=== PATIENT | male | born 1960 | race American Indian/Alaskan Native ===

== ENCOUNTER 2016-05-22 18:59 | Emergency (ER) | payer SELFPAY ==
[2016-05-22] MEDS ORDERED: NACL 0.9% 1000 ML 1,000 ML ONE (19:05)
[2016-05-22] MEDS ORDERED: ADRENALIN ONE (19:25)
[2016-05-22] MEDS ORDERED: SODIUM BICARBONATE IV ONE (19:25)
--- NOTE | 2016-05-22 19:43 | Emergency Department Report ---
HPI - General Time Seen by Provider: 05/22/16 19:42 - HPI HPI: This is a 56-year-old -[place] male presents to the emergency department by EMS from home in cardiac arrest. Allegedly the patient was seen going down, unresponsive and pulseless by his son about 6:20 PM. EMS got a call shortly after that and arrived around 6:30. The patient was in asystole and/or PEA from that time on. Chest compressions were started and the patient received a combitube. EMS said that there was some blood seen in the oropharynx. Patient has a history of end-stage renal disease on dialysis and completed dialysis earlier today. The patient received 2 rounds of epinephrine , 1 amp of sodium bicarbonate and 1 amp of calcium. ED Review of Systems ROS: Stated complaint: CARDIAC ARREST Other details as noted in HPI Comment: Unobtainable due to pts medical conditions Physical Exam - Physical Exam Physical Exam: GENERAL: Patient is ill-appearing and unresponsive. HEENT: Normocephalic. Pupils are fixed and dilated. There is a combitube in place NECK: Supple. Trachea is midline. CHEST/LUNGS: There are no spontaneous lung sounds. However some coarse breath sounds are heard with bag valve ventilation. HEART/CARDIOVASCULAR: No spontaneous heart sounds. ABDOMEN: Abdomen is soft. SKIN: Skin is cool but dry. NEURO: Patient is unresponsive to verbal, tactile or painful stimuli and does not follow any commands. MUSCULOSKELETAL: There is no deformity. No spontaneous movement of the extremities. There was no palpable pulse to the radial or femoral regions. - Central Line Placement Right Femoral Consent Obtained: emergent situation Time Out Performed: No Patient Placed on Monitor/Pulse Ox: Yes MD Prep: mask, gown, gloves Central Line Prep: Chlorhexidine scrub Ultrasound Used for Placement: Yes Central Line Lumen Inserted: triple Bloods Obtained for Lab: Yes Central Line Position: good blood return Patient Tolerated Procedure: no complications Complications: none - Intubation Time Out Performed: No Sedative: none Laryngoscope: fiberoptic video scope Size: 4 ET Tube Size: 7.5 Tube Secured Depth (cm): 25 Tube Secured Location: teeth Tube Placement Confirmation: visualized tube passing t, equal breath sounds bilat, confirmation by capnometr Patient Tolerated Procedure: no complications Intubation Complications: none ED Medical Decision Making - Medical Decision Making 56-year-old male presents in cardiac arrest from home. He had been getting about 25 minutes of ACLS by EMS that included intubation with combitube, 2 rounds of epinephrine, one amp of bicarbonate and 1 of calcium. He presented still in cardiac arrest when he got to the emergency department. He was placed on the monitor and was in PEA. Chest compressions continued. Patient was given 3 rounds of ACLS with epinephrine, another bicarbonate. Patient maintained PEA status. On the fourth rhythm and pulse check, the patient had a pulse and an organized rhythm on the monitor. We started to get blood and evaluate the patient when he once again appeared to have bradycardia and it appeared more asystolic on the monitor. ACLS protocol was restarted. While the patient was getting medications and chest compressions, I placed a central line in the right femoral vein so the patient could get pressors if we had return of spontaneous circulation again due to patient's dialysis status. After this was placed, the Combitube was removed and the patient was intubated via glydescope. After another 2 rounds of ACLS, the patient remained with asystole on the monitor. I took the ultrasound and placed it over the heart and there was no movement, squeeze or even flutter. At this point time of was called for 192. The patient's family was notified in the consultation room and was allowed the opportunity to come back and see the patient. - Differential Diagnosis cardiac arrest, respiratory failure, ME, PE Critical Care Time: Yes Critical care time in (mins) excluding proc time.: 20 Critical care attestation.: If time is entered above; I have spent that time in minutes in the direct care of this critically ill patient, excluding procedure time. Critical care time was spent on doing the initial evaluation, supervision of ACLS, calling time of , ultrasound evaluation of the heart and discussion with the family. This does not include the time spent doing a central line and intubation procedures. Critical Care Time: 20 minutes ED Disposition Clinical Impression: Cardiac arrest Disposition: Is pt being admited?: No Referrals: PRIMARY CARE, [Primary Care Provider] - 3-5 Days Time of Disposition: 20:42
== END 2016-05-22 23:26 ==
LOC: ED 18:59
DX: I46.9 Cardiac arrest, cause unspecified (principal)
CPT/HCPCS: 31500; 36556; 92950; 99285; J0171; J7030